=== PATIENT | female | born 1975 | race Two or more races ===

== ENCOUNTER 2023-03-05 14:49 | Emergency (ER) | payer MEDICAID, OTHER ==
[~2023-03-05] VITALS: Ht 160 cm; Wt 62.2 kg
[2023-03-05] MEDS ORDERED: cloNIDine HCL 0.1 MG TAB PO ONE (15:45)
[2023-03-05 17:13] VITALS: BP 151/119; PULSE 103; RESP 17; TEMP 97.8; O2SAT 99
== END 2023-03-05 17:15 | disposition home or self-care (01) ==
LOC: EDBD 14:49 → ER 14:49
DX: I16.0 Hypertensive urgency (principal)
CPT/HCPCS: 93005